=== PATIENT | male | born 2000 | race American Indian/Alaskan Native ===

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

== ENCOUNTER 2020-10-29 16:28 | Emergency (ER) | payer MEDICAID ==
[2020-10-29 16:43] VITALS: BP 154/102; PULSE 87
--- NOTE | 2020-10-29 16:54 | EDM.PDOC ---
ED HPI GENERAL MEDICAL PROBLEM - General Chief Complaint: ENT Problem Stated Complaint: EARACHE Time Seen by Provider: 10/29/20 16:47 Source of Information: Reports: Patient, RN Notes Reviewed History Limitations: Reports: No Limitations - History of Present Illness INITIAL COMMENTS - FREE TEXT/NARRATIVE: 20-year-old gentleman presents emergency department with a complaint of right ear pain has been going on for 24 hours he has had a history with recurrent ear infections. Denies any swelling no fevers no nausea vomiting no discharge Right Ear Pain Score (Numeric/FACES): 7 - Related Data Allergies Allergy/AdvReac Type Severity Reaction Status Date / Time No Known Allergies Allergy Verified 10/29/20 16:38 Home Meds: Home Meds Acetaminophen [Tylenol] 650 mg PO Q4H PRN 08/30/19 [History] Escitalopram [Lexapro] 10 mg PO DAILY 10/29/20 [History] hydroCHLOROthiazide [Hydrochlorothiazide] 50 mg PO DAILY 10/29/20 [History] Past Medical History HEENT History: Reports: Otitis Media Cardiovascular History: Reports: Hypertension Musculoskeletal History: Reports: Fracture Psychiatric History: Reports: Depression Endocrine/Metabolic History: Reports: Obesity/BMI 30+ Dermatologic History: Reports: Other (See Below) Other Dermatologic History: pilonidal cyst - Past Surgical History HEENT Surgical History: Reports: None Musculoskeletal Surgical History: Reports: None Social & Family History - Family History Cardiac: Reports: [place] Respiratory: Reports: Asthma Endocrine/Metabolic: Reports: Diabetes, type II - Tobacco Use Tobacco Use Status *Q: Never Tobacco User Second Hand Smoke Exposure: No - Caffeine Use Caffeine Use: Reports: Soda Caffeine Use Comment: 4 cans/daily - Recreational Drug Use Recreational Drug Use: No ED ROS ENT - Review of Systems Review Of Systems: See Below Constitutional: Denies: Fever HEENT: Reports: Ear Pain. Denies: Ear Discharge ED EXAM, ENT - Physical Exam Exam: See Below Text/Narrative:: Ears right tympanic membrane is erythematous I cannot appreciate any landmarks or light reflex left tympanic membrane clear and guerrero landmarks and light reflex are present. Mouth mucosa is moist and pink no erythema or exudate known soft palate tongue is midline nose is midline. Nose no septal deviation nares are clear neck is supple no thyromegaly no tracheal deviation Exam Limited By: No Limitations General Appearance: Alert, WD/WN, No Apparent Distress Course - Vital Signs Last Recorded V/S: Last Vital Signs Temp 98.1 F 10/29/20 16:42 Pulse 87 10/29/20 16:42 Resp 14 10/29/20 16:42 BP 154/102 H 10/29/20 16:42 Pulse Ox 98 10/29/20 16:42 Departure - Departure Time of Disposition: 16:54 Disposition: Home, Self-Care 01 Condition: Good Clinical Impression: Right otitis media Qualifiers: Otitis media type: suppurative Chronicity: acute Recurrence: non-recurrent Spontaneous tympanic membrane rupture: without spontaneous rupture Qualified Code(s): H66.001 - Acute suppurative otitis media without spontaneous rupture of ear drum, right ear - Discharge Information Instructions: Otitis Media, Adult, [id number] Referrals: PCP,None [Primary Care Provider] - Additional Instructions: Take full course of antibiotics use Tylenol or Motrin as needed for pain control, please followup with your primary care provider in 3-5 days if not better, please call return to the emergency department with worsening of symptoms., Sepsis Event Note (ED) - Evaluation Sepsis Screening Result: No Definite Risk - Focused Exam Vital Signs: Vital Signs Temp Pulse Resp BP Pulse Ox 10/29/20 16:42 98.1 F 87 14 154/102 H 98 - Assessment/Plan Plan: Assessment Acuity = acute Site and laterality = right otitis media Etiology = probable bacterial cause Manifestations = otalgia Location of injury = Home Lab values = none Plan Elect to treat empirically amoxicillin 500 mg p.o. 3 times daily x7 days follow- up primary care 3 to 5 days if not better This note was dictated using [employer] voice recognition software please call with any questions on syntax or grammar.
== END 2020-10-29 16:58 | disposition home or self-care (01) ==
LOC: JP.ED 16:28
DX: H66.001 Acute suppurative otitis media without spontaneous rupture of ear drum, right ear (principal); I10 Essential (primary) hypertension; E66.9 Obesity, unspecified; Z68.42 Body mass index [BMI] 45.0-49.9, adult; Z79.899 Other long term (current) drug therapy
CPT/HCPCS: 99282; 99283